=== PATIENT | male | born 2000 | race Caucasian/White ===

== ENCOUNTER 2022-04-19 15:11 | Outpatient (CLI) | payer OTHER | END 2022-04-19 23:00 | disposition home or self-care (01) | LOC: LAB 15:11 | PROVIDERS: ATTEND Obstetrics & Gynecology | DX: Z20.818 Contact with and (suspected) exposure to other bacterial communicable diseases (principal); Z20.828 Contact with and (suspected) exposure to other viral communicable diseases ==

== ENCOUNTER 2022-09-02 11:39 | Emergency (ER) | payer OTHER ==
[~2022-09-02] VITALS: Ht 167.6 cm; Wt 100.7 kg
[2022-09-02] MEDS ORDERED: INSULIN GL100 UNIT/3 SQ (11:54)
== END 2022-09-02 19:54 | disposition home or self-care (01) ==
LOC: ER 11:39
DX: B34.9 Viral infection, unspecified (principal)